=== PATIENT | male | born 1955 | race Caucasian/White ===

== ENCOUNTER 2017-11-12 04:41 | Inpatient (IN) ==
[2017-11-09 11:39] LABS: Appearance,Urine CLEAR; Bilirubin,Urine NEG (NEG); Color,Urine YELLOW; Glucose,Urine (UA) NEGATIVE (NEG); Leukocyte Esterase,Urine NEG /uL (NEG); Nitrate,Urine NEG (NEG); Protein,Urine NEG (NEG); Urine Blood NEG mg/dL (<0.03)
[2017-11-09 12:31] LABS: Blood Urea Nitrogen 18 mg/dl (8-23)
[2017-11-09 12:32] LABS: Basophils # (Auto) 0 K/mcL (0.0-0.3); Basophils % (Auto) 0.5 % (0.0-2.0); Eosinophils # (Auto) 0.2 K/mcL (0.0-0.7); Eosinophils % (Auto) 4.5 % (0.0-7.0); Granulocytes % (Auto) 60.2 % (38.0-78.0); Lymphocytes # (Auto) 1.3 K/mcL (1.5-4.8); Lymphocytes % (Auto) 24.5 % (15.5-49.0); Mean Cell Volume 86.8 fL (80.0-100.0); Mean Corpuscular HGB Conc 33.7 g/dL (31.0-36.0); Mean Corpuscular Hemoglobin 29.2 pg (26.0-34.0); Monocytes # (Auto) 0.5 K/mcL (0.1-0.9); Monocytes % (Auto) 10.3 % (1.0-12.0); Platelet Count 182 K/mcL (140-440); RBC 5.16 M/mcL (4.50-5.90); Red Cell Distribution Width 13.5 % (11.5-14.5)
[2017-11-12] MEDS ORDERED: HEPARIN 20,000 UNIT/ML VIAL IR ONE (06:47)
[2017-11-12] MEDS ORDERED: PREGABALIN 75 MG CAPSULE PO SCH (07:00)
[2017-11-12] MEDS ORDERED: oxyCODONE 10 MG TAB.ER.12H PO SCH (07:00)
[2017-11-12] MEDS ORDERED: CELECOXIB 200 MG CAPSULE PO SCH (07:00)
[2017-11-12] MEDS ORDERED: ceFAZolin 1 GM VIAL IV SCH (07:00)
[2017-11-12] MEDS ORDERED: LIDOCAINE HCL/PF 100 MG/5 ML SYRINGE IV ONE (07:39)
[2017-11-12] MEDS ORDERED: ONDANSETRON 4 MG/2 ML VIAL ONE (07:39)
[2017-11-12] MEDS ORDERED: GLYCOPYRROLATE 0.2 MG/ML VIAL IV ONE (07:39)
[2017-11-12] MEDS ORDERED: ePHEDrine 50 MG/ML AMPUL IV ONE (07:39)
[2017-11-12] MEDS ORDERED: PROPOFOL 200 MG/20 ML VIAL IV ONE (07:39)
[2017-11-12] MEDS ORDERED: MIDAZOLAM 5 MG/5 ML VIAL ONE (07:39)
[2017-11-12] MEDS ORDERED: DEXAMETHASONE 10 MG/ML VIAL ONE (07:39)
[2017-11-12] MEDS ORDERED: PROMETHAZINE 25 MG/ML VIAL IV PRN (09:06)
[2017-11-12] MEDS ORDERED: ACETAMINOPHEN 1,000 MG/100 ML BOTTLE IV ONE (09:06)
[2017-11-12] MEDS ORDERED: ONDANSETRON 4 MG/2 ML VIAL IV PRN ×2 (09:06→09:18)
[2017-11-12] MEDS ORDERED: FLUMAZENIL 0.1 MG/ML ML IV PRN (09:06)
[2017-11-12] MEDS ORDERED: fentaNYL 100 MCG/2 ML VIAL IV PRN (09:06)
[2017-11-12] MEDS ORDERED: LACTATED RINGERS 250 ML IV PRN (09:06)
[2017-11-12] MEDS ORDERED: MEPERIDINE 25 MG/ML SYRINGE IV PRN (09:06)
[2017-11-12] MEDS ORDERED: BENZOCAINE/MENTHOL 1 LOZENGE PO PRN ×2 (09:06→09:18)
[2017-11-12] MEDS ORDERED: IPRATROPIUM/ALBUTEROL 3 ML AMPUL.NEB NEB PRN (09:06)
[2017-11-12] MEDS ORDERED: NALOXONE HCL 0.4 MG/ML VIAL IV PRN (09:06)
[2017-11-12] MEDS ORDERED: diphenhydrAMINE 50 MG/ML VIAL IV PRN (09:06)
[2017-11-12] MEDS ORDERED: LACTATED RINGERS 1,000 ML IV SCH (09:15)
[2017-11-12] MEDS ORDERED: HYDROcodone/APAP 10/325MG TABLET PO PRN (09:18)
[2017-11-12] MEDS ORDERED: MAGNESIUM HYDROXIDE 30 ML ORAL.SUSP PO PRN (09:18)
[2017-11-12] MEDS ORDERED: KETOROLAC 30 MG/ML VIAL IV PRN (09:18)
[2017-11-12] MEDS ORDERED: FLEETS ADULT ENEMA PR PRN (09:18)
[2017-11-12] MEDS ORDERED: BISACODYL 10 MG SUPP.RECT PR PRN (09:18)
[2017-11-12] MEDS ORDERED: POLYETHYLENE GLYCOL 3350 17 GM PACKET PO PRN (09:18)
--- NOTE | 2017-11-12 09:18 | Brief Operative Note ---
Date of procedure: 11/12/17 Pre-op diagnosis: R hip severe DJD Post-op diagnosis: same Procedure: Right anterior total hip arthroplasty Grafts/Implants: Yes (Depuy Actis 6 high offset stem, +8.5 36 delta head, 52 cup , altrx liner) Anesthesia: spinal, GLMA Findings: severe arthritis Complications: none Surgeon: Vishal Bauer Drafting Detailer: Drew Winter Estimated blood loss (cc): 200 Specimens Removed/Pathology: none sent Condition: stable Disposition: PACU
[2017-11-12] MEDS: 0.9 % SODIUM CHLORIDE 1,000 ML IV SCH ×2 (10:36→18:37)
--- NOTE | 2017-11-12 10:36 | XRay Report ---
CLINICAL INFORMATION: Post-op Total Hip COMPARISON: None. FINDINGS: ] The new right hip prostheses is anatomically aligned. No osseous abnormality. Older left total hip prostheses remains anatomically aligned without evidence of loosening or infection. Small amount of heterotopic ossification over the superior left hip capsule. SI joints show mild degeneration IMPRESSION: Negative Interpreted and Authenticated by: Shaun Gunn 11/12/17
[2017-11-12] MEDS: 0.9 % SODIUM CHLORIDE 10 ML SYRINGE IV SCH ×2 (14:56→20:25)
[2017-11-12] MEDS: WARFARIN 5 MG TABLET PO SCH (15:04)
[2017-11-12] MEDS: ceFAZolin 1 GM VIAL IV SCH ×2 (15:54→23:25)
[2017-11-12] MEDS: HYDROmorphone 2 MG/ML SYRINGE IV PRN ×2 (17:44→23:24)
--- NOTE | 2017-11-12 19:12 | XRay Report ---
CLINICAL INFORMATION: hip arthroplasty COMPARISON: None. FINDINGS: Multiple digital images from the OR show progressive placement of right total hip prostheses. Final images show the components in anatomic alignment - no osseous abnormality. IMPRESSION: Negative Interpreted and Authenticated by: Shaun Gunn 11/12/17
[2017-11-12] MEDS: DOCUSATE SODIUM 100 MG CAPSULE PO SCH (20:25)
[2017-11-12] MEDS: PREGABALIN 150 MG CAPSULE PO SCH (20:25)
[2017-11-12] MEDS ORDERED: SENNOSIDES 1 TABLET PO SCH (21:00)
[2017-11-12] MEDS ORDERED: ATORVASTATIN 20 MG TABLET PO SCH (21:00)
[2017-11-12] MEDS: oxyCODONE HCL 5 MG TABLET PO PRN (23:24)
[2017-11-13] MEDS: 0.9 % SODIUM CHLORIDE 1,000 ML IV SCH ×2 (02:29→09:36)
[2017-11-13] MEDS: oxyCODONE HCL 5 MG TABLET PO PRN ×3 (03:35→11:42)
[2017-11-13] MEDS: 0.9 % SODIUM CHLORIDE 10 ML SYRINGE IV SCH (06:05)
[2017-11-13] MEDS ORDERED: PANTOPRAZOLE 40 MG TABLET PO SCH (07:30)
[2017-11-13] MEDS: PREGABALIN 150 MG CAPSULE PO SCH (08:07)
[2017-11-13] MEDS: DOCUSATE SODIUM 100 MG CAPSULE PO SCH (08:08)
[2017-11-13] MEDS ORDERED: NIFEdipine 30 MG TAB.XL.24H PO SCH (09:00)
[2017-11-13] MEDS ORDERED: DULoxetine 30 MG CAPSULE PO SCH (09:00)
[2017-11-13] MEDS ORDERED: HYDROCHLOROTHIAZIDE 25 MG TABLET PO SCH (09:00)
--- NOTE | 2017-11-13 11:01 | Discharge Summary ---
Ortho Discharge - [facility] - Patient Instructions Diet: Regular Diet Activity: weight bearing as tolerated Total Hip Protocol: Follow activity instructions as provided by Physical Therapy. Dressing Care: Allenel Ag - leave on for 5 days Patient Education: Total Hip Replacement (DC) Additional Instructions: You have an appointment with [facility] Physical Therapy ([phone]) with Fish on WednesdayNovember 17 at 7:30 am. Please check in at 7:15 for paperwork. - Follow Up Plan Follow Up Appointments: Drew Winter PA-C [Physician Nursery Laborer] - 11/25/17 8:50 am Disposition: Home, Self-Care Prognosis: Good Rehab Potential: Good - Orders For Discharge Prescriptions: Warfarin [Coumadin] 5 mg PO DAILY #1 tab Additional Discharge Orders: Physical Therapy at Discharge - [facility] Location: Determined By Patient Toilet Riser Discharge Order Location: Determined By Patient Walker Location: Determined By Patient
--- NOTE | 2017-11-13 11:07 | Orthopedic Progress Note ---
Subjective Patient information: Note initiated : 11/13/17 at 11:05 am Service Date, if different from initiated Date: [] Patient: Will Corona 62 y/o M admitted on 11/12/17 for Total Right Hip Arthroplasty Anterior . Chief Complaint: [] Principal diagnosis: s/p R MANOJ Interval history: pain controlled with oxycodone Objective Vital signs: Vital Signs Temp Pulse Resp BP BP Pulse Ox 11/13/17 07:06 98.2 F 18 114/74 95 11/13/17 03:37 98.8 F 82 18 114/72 95 11/13/17 00:00 98.3 F 77 16 115/75 95 11/12/17 20:00 98.1 F 80 18 114/70 94 11/12/17 15:16 98.3 F 16 150/79 96 11/12/17 13:10 115/65 98 11/12/17 12:10 123/73 94 11/12/17 11:47 102/66 97 11/12/17 11:40 113/71 96 Intake and Output 11/12/17 11/13/17 11/13/17 21:59 05:59 13:59 Intake Total 1640 / 1640 325 / 325 600 / 600 Output Total 500 / 500 900 / 900 600 / 600 Balance 1140 / 1140 -575 / -575 0 / 0 Intake: IV 1000 / 1000 Sodium Chloride 0.9% 1,000 ml @ 1000 / 1000 125 mls/hr IV .Q8H MARIAN Rx#: [id number] Oral 640 / 640 325 / 325 600 / 600 Output: Void Amount 500 / 500 900 / 900 600 / 600 Other: Meal Dinner Breakfast Percent of Meal Consumed 100% 100% Feeding Ability Assist with Tray Set Up # Voids 1 1 # Bowel Movements 1 Weight 235 lb 8 oz Intake & Output: Intake & Output 11/12/17 11/13/17 11/13/17 21:59 05:59 13:59 Intake Total 1640 / 1640 325 / 325 600 / 600 Output Total 500 / 500 900 / 900 600 / 600 Balance 1140 / 1140 -575 / -575 0 / 0 Weight 235 lb 8 oz Intake: IV 1000 / 1000 Sodium Chloride 0.9% 1,000 ml @ 1000 / 1000 125 mls/hr IV .Q8H MARIAN Rx#: [id number] Oral 640 / 640 325 / 325 600 / 600 Output: Void Amount 500 / 500 900 / 900 600 / 600 Other: Meal Dinner Breakfast Percent of Meal Consumed 100% 100% Feeding Ability Assist with Tray Set Up # Voids 1 1 # Bowel Movements 1 Dressing: Yes clean, Yes dry, Yes intact Neurological exam IM: Yes alert, Yes oriented X3, Yes neurovascular intact - Labs CBC & BMP: 11/13/17 04:52 11/09/17 09:16 Labs: Orthopedic Labs 11/13/17 11/12/17 04:52 05:07 PT 15.0 H 13.7 INR 1.2 H 1.0 APTT 30 11/13/17 11/09/17 04:52 09:16 Hgb 11.3 L 15.1 Hct 32.6 L 44.8 Assessment and Plan (1) S/P total hip arthroplasty POD#1-doing well, wants to go home, wants eliquis -take coumadin today for dvt proph, then start eliquis tomorrow -has oxycodone at home for pain -d/c home Status: Acute
[2017-11-13] MEDS: WARFARIN 5 MG TABLET PO SCH (12:52)
== END 2017-11-13 13:15 | disposition home or self-care (01) | DRG 470 ==
LOC: MEDSUR 04:41
PROVIDERS: ADMIT Orthopaedic Surgery; ATTEND Orthopaedic Surgery